=== PATIENT | female | born 1960 | race American Indian/Alaskan Native ===

== ENCOUNTER 2017-08-17 22:30 | Emergency (ER) | payer MEDICAID ==
[2017-08-17] MEDS ORDERED: PHENERGAN PO ONE (23:15)
[2017-08-17] MEDS ORDERED: NACL 0.9% 1000 ML 1,000 ML IV ONE (23:17)
[2017-08-17] MEDS ORDERED: DILAUDID IV ONE (23:17)
--- NOTE | 2017-08-17 23:31 | Emergency Department Report ---
ED Abdominal Pain HPI - General Chief Complaint: Abdominal Pain Stated Complaint: N/V BLOOD IN URINE Time Seen by Provider: 08/17/17 23:14 Source: patient Mode of arrival: Stretcher Limitations: No Limitations - History of Present Illness Initial Comments: Ms Burns is a 56 year-old woman with hx of stage 4 pancreatic cancer on home hospice who presents with nausea, abdominal pain, hematuria. is accompanied by her home hospice nurse. Has not been taking her meds at home. She is DNR/DNI. No fever. Decreased PO due to nausea. Was just hospitalized at [facility] this week and discharged to home hospice. Has been taking oxycodone, but not her other meds. has methadone, morphine, phenergan, haldol, ativan which she has not been taking. Hx of HTN, HIV on meds (CD4 470, viral load undetectable), HepC and DM. Some pain with urination as well. MD Complaint: abdominal pain - Related Data Allergies Allergy/AdvReac Type Severity Reaction Status Date / Time No Known Allergies Allergy Unverified 05/19/14 19:44 ED Review of Systems ROS: Stated complaint: N/V BLOOD IN URINE Other details as noted in HPI Comment: All other systems reviewed and negative ED Past Medical Hx - Past Medical History Previous Medical History?: Yes Hx Hypertension: Yes Hx Diabetes: Yes Hx HIV: Yes Additional medical history: Hep C, pancreatic CA, jaundice - Surgical History Past Surgical History?: Yes Additional Surgical History: laparscopy, right chest port and removed - Social History Smoking Status: Former Smoker Substance Use Type: None ED Physical Exam - General Limitations: No Limitations General appearance: alert, in no apparent distress, cachectic - Head Head exam: Present: atraumatic, normocephalic - Eye Eye exam: Present: normal appearance, PERRL, EOMI - ENT ENT exam: Present: normal exam, mucous membranes dry - Neck Neck exam: Present: normal inspection, full ROM. Absent: tenderness, lymphadenopathy - Respiratory Respiratory exam: Present: normal lung sounds bilaterally. Absent: respiratory distress, wheezes, rales - Cardiovascular Cardiovascular Exam: Present: regular rate, normal rhythm. Absent: systolic murmur, diastolic murmur, rubs, gallop - GI/Abdominal GI/Abdominal exam: Present: soft, tenderness. Absent: distended, guarding, rebound - Extremities Exam Extremities exam: Present: normal inspection - Back Exam Back exam: Present: normal inspection - Neurological Exam Neurological exam: Present: alert, oriented X3 - Psychiatric Psychiatric exam: Present: normal affect, normal mood - Skin Skin exam: Present: warm, dry, intact, normal color. Absent: rash ED Course Vital Signs 08/17/17 08/17/17 08/18/17 22:37 22:52 00:56 Temperature 98.8 F Pulse Rate 114 H 105 H Respiratory 16 16 16 Rate Blood Pressure 145/79 Blood Pressure 154/81 [Left] O2 Sat by Pulse 100 99 Oximetry 08/18/17 01:23 Temperature Pulse Rate Respiratory 16 Rate Blood Pressure Blood Pressure [Left] O2 Sat by Pulse Oximetry ED Medical Decision Making - Lab Data Result diagrams: 08/17/17 22:50 08/17/17 22:50 Lab Results 08/17/17 08/17/17 08/18/17 Range/Units 22:50 22:50 00:57 WBC 8.3 (4.5-11.0) K/mm3 RBC 3.88 (3.65-5.03) M/mm3 Hgb 12.0 (10.1-14.3) gm/dl Hct 34.5 (30.3-42.9) % MCV 89 (79-97) fl MCH 31 (28-32) pg MCHC 35 H (30-34) % RDW 17.8 H (13.2-15.2) % Plt Count 150 (140-440) K/mm3 Lymph % (Auto) 10.4 L (13.4-35.0) % Maries % (Auto) 6.7 (0.0-7.3) % Eos % (Auto) 0.0 (0.0-4.3) % Baso % (Auto) 0.2 (0.0-1.8) % Lymph # 0.9 L (1.2-5.4) K/mm3 Maries # 0.6 (0.0-0.8) K/mm3 Eos # 0.0 (0.0-0.4) K/mm3 Baso # 0.0 (0.0-0.1) K/mm3 Seg Neutrophils % 82.7 H (40.0-70.0) % Seg Neutrophils # 6.9 (1.8-7.7) K/mm3 Sodium 125 L (137-145) mmol/L Potassium 4.0 (3.6-5.0) mmol/L Chloride 89.9 L (98-107) mmol/L Carbon Dioxide 21 L (22-30) mmol/L Anion Gap 18 mmol/L BUN 6 L (7-17) mg/dL Creatinine < 0.2 L (0.7-1.2) mg/dL Estimated GFR > 60 ml/min BUN/Creatinine Ratio 30 % Glucose 216 H (65-100) mg/dL Calcium 8.7 (8.4-10.2) mg/dL Total Bilirubin 24.80 H (0.1-1.2) mg/dL AST 180 H (5-40) units/L ALT 73 H (7-56) units/L Alkaline Phosphatase 196 H (35-129) units/L Total Protein 8.0 (6.3-8.2) g/dL Albumin 2.9 L (3.9-5) g/dL Albumin/Globulin Ratio 0.6 % Lipase 18 (13-60) units/L Urine Color Antonia (Yellow) Urine Turbidity Clear (Clear) Urine pH 6.0 (5.0-7.0) Ur Specific Moriah 1.002 L (1.003-1.030) Urine Protein <15 mg/dl (Negative) mg/dL Urine Glucose (UA) 50 (Negative) mg/dL Urine Ketones Neg (Negative) mg/dL Urine Blood Sm (Negative) Urine Nitrite Neg (Negative) Urine Bilirubin Neg (Negative) Urine Urobilinogen < 2.0 (<2.0) mg/dL Ur Leukocyte Esterase Neg (Negative) Urine WBC (Auto) 3.0 (0.0-6.0) /HPF Urine RBC (Auto) 1.0 (0.0-6.0) /HPF U Epithel Cells (Auto) < 1.0 (0-13.0) /HPF Urine Mucus Few /HPF - Medical Decision Making ms Burns is a 56 year-old woman with stage 4 pancreatic cancer who presents with nausea/vomiting. She is on hospice. Home hospice worker comes in too. She has not been taking home meds. Does not know what is available. patient is DNR/ DNI. Exam with tachycardia, jaundice. Labs as expected. No UTI. Given dilaudid and phenergan with adequate symptom control. Home hospice is coming to her house first thing in the morning to discuss her medication regimen. Safe for dc to home with close hospice follow-up. Goal of care is comfort only. Critical care attestation.: If time is entered above; I have spent that time in minutes in the direct care of this critically ill patient, excluding procedure time. ED Disposition Clinical Impression: Nausea and vomiting Qualifiers: Vomiting type: unspecified Vomiting Intractability: non-intractable Qualified Code(s): R11.2 - Nausea with vomiting, unspecified Disposition: DC-01 TO HOME OR SELFCARE Is pt being admited?: No Condition: Stable Instructions: Acute Nausea and Vomiting (ED) Referrals: PRIMARY CARE, [Primary Care Provider] - 3-5 Days
[2017-08-17 23:55] LABS: Alanine Aminotransferase 73 units/L (7-56); Albumin 2.9 g/dL (3.9-5); BUN/Creatinine Ratio 30; Blood Urea Nitrogen 6 mg/dL (7-17); Calcium 8.7 mg/dL (8.4-10.2); Hemolysis Index 78; Lipase 18 units/L (13-60)
[2017-08-18 00:23] LABS: Basophils % (Auto) 0.2 % (0.0-1.8); Hematocrit 34.5 % (30.3-42.9); Lymphocytes # (Auto) 0.9 K/mm3 (1.2-5.4); Lymphocytes % (Auto) 10.4 % (13.4-35.0); Mean Corpuscular HGB Conc 35 % (30-34); Mean Corpuscular Hemoglobin 31 pg (28-32); Mean Corpuscular Volume 89 fl (79-97); Monocytes # (Auto) 0.6 K/mm3 (0.0-0.8); Monocytes % (Auto) 6.7 % (0.0-7.3); Platelet Count 150 K/mm3 (140-440); Red Blood Count 3.88 M/mm3 (3.65-5.03); Red Cell Distribution Width 17.8 % (13.2-15.2)
[2017-08-18 01:12] LABS: Bilirubin,Urine NEG (Negative); Blood,Urine SM (Negative); Color,Urine Amber (Yellow); Mucus,Urine FEW /HPF; Protein,Urine <15 mg/dL mg/dL (Negative); Urobilinogen,Urine < 2.0 mg/dL (<2.0)
[2017-08-18] MEDS ORDERED: BENADRYL ONE (01:18)
[2017-08-18] MEDS ORDERED: BENADRYL IV ONE (01:19)
[2017-08-18 02:51] VITALS: BP 134/77
== END 2017-08-18 03:10 | disposition home or self-care (01) ==
LOC: ED 22:30
DX: R11.2 Nausea with vomiting, unspecified (principal); R10.9 Unspecified abdominal pain; R31.9 Hematuria, unspecified; I10 Essential (primary) hypertension; E11.9 Type 2 diabetes mellitus without complications; Z87.891 Personal history of nicotine dependence; Z86.19 Personal history of other infectious and parasitic diseases
CPT/HCPCS: 36415; 80053; 81001; 83690; 85025; 96361; 96374; 96375; 99284; J1170; J1200; J7030; Q0169

== ENCOUNTER 2017-08-20 09:22 | Emergency (ER) | payer MEDICAID ==
[2017-08-20] MEDS ORDERED: ZOFRAN IV ONE (10:46)
[2017-08-20] MEDS ORDERED: MORPHINE IV ONE (10:46)
[2017-08-20] MEDS ORDERED: NACL 0.9% 1000 ML 1,000 ML IV ONE (10:47)
--- NOTE | 2017-08-20 10:52 | Emergency Department Report ---
ED Abdominal Pain HPI - General Chief Complaint: Abdominal Pain Stated Complaint: ABD/NAUSEA VOMITING Time Seen by Provider: 08/20/17 10:11 Source: patient, EMS Mode of arrival: Stretcher Limitations: No Limitations - History of Present Illness Initial Comments: Ms. Burns presents with abdominal pain. She is spitting up a black liquid. Moderately severe pain. She is taking methadone and MS Contin which she says is too strong for her. She also has zofran for home. I was able to obtain information from the previous ED [place] from visit 3 days ago August 17. According to my colleague's documentation, patient is on home hospice care. Recently dc'd from [facility]. She has hx of stage 4 pancreatic cancer. According to patient, the doctor told her that nothing could be done for the cancer. MD Complaint: abdominal pain -: Gradual, days(s) (sevearl days) Location: epigastric Radiation: LUQ, RUQ Severity: moderate Severity scale (0 -10): 0 Quality: cramping, sharp - Related Data Allergies Allergy/AdvReac Type Severity Reaction Status Date / Time No Known Allergies Allergy Verified 08/20/17 10:21 ED Review of Systems ROS: Stated complaint: ABD/NAUSEA VOMITING Other details as noted in HPI Comment: All other systems reviewed and negative Constitutional: malaise. denies: fever Respiratory: denies: cough Cardiovascular: denies: chest pain ED Past Medical Hx - Past Medical History Previous Medical History?: Yes Hx Hypertension: Yes Hx Diabetes: Yes Hx of Cancer: Yes Hx HIV: Yes Additional medical history: Hep C, pancreatic CA, jaundice - Surgical History Past Surgical History?: Yes Additional Surgical History: laparscopy, right chest port and removed - Social History Smoking Status: Never Smoker Substance Use Type: None ED Physical Exam - General Limitations: No Limitations General appearance: alert, in no apparent distress - Head Head exam: Present: atraumatic, normocephalic - Eye Eye exam: Present: normal appearance, scleral icterus - ENT ENT exam: Present: mucous membranes moist - Neck Neck exam: Present: normal inspection - Respiratory Respiratory exam: Present: normal lung sounds bilaterally. Absent: respiratory distress, wheezes, rales, rhonchi - Cardiovascular Cardiovascular Exam: Present: regular rate, normal rhythm. Absent: systolic murmur, diastolic murmur, rubs, gallop - GI/Abdominal GI/Abdominal exam: Present: soft, distended, normal bowel sounds. Absent: tenderness, guarding, rebound - Extremities Exam Extremities exam: Present: normal inspection - Back Exam Back exam: Present: normal inspection - Neurological Exam Neurological exam: Present: alert, oriented X3 - Psychiatric Psychiatric exam: Present: normal affect, normal mood - Skin Skin exam: Present: warm, dry, intact, normal color. Absent: rash ED Course Vital Signs 08/20/17 08/20/17 08/20/17 09:53 10:00 10:59 Temperature 99.8 F H Pulse Rate 116 H 109 H Respiratory 14 9 L Rate Blood Pressure 145/75 163/84 Blood Pressure 145/75 [Left] O2 Sat by Pulse 100 100 100 Oximetry 08/20/17 08/20/17 08/20/17 11:00 11:15 11:27 Temperature Pulse Rate Respiratory 16 Rate Blood Pressure 156/82 156/82 Blood Pressure [Left] O2 Sat by Pulse 100 100 Oximetry 08/20/17 08/20/17 08/20/17 11:30 11:45 11:57 Temperature Pulse Rate Respiratory 15 Rate Blood Pressure 145/81 145/81 Blood Pressure [Left] O2 Sat by Pulse 100 Oximetry 08/20/17 12:00 Temperature Pulse Rate Respiratory Rate Blood Pressure 136/81 Blood Pressure [Left] O2 Sat by Pulse Oximetry ED Medical Decision Making - Medical Decision Making Unfortunately, Ms. Arturo Victor has the diagnosis of stage 4 pancreatic cancer. According to previous documentaion, she is DNR/DNI. Tachycardia was present during previous ED encounter. Goal of care is comfort only. She received IV fluid in the ED and analgesia. No active vomiting in the ED. She will contact her hospice nurse for pain control instructions. I strongly encouraged her to take the medications methadone and MS Alex. She is concerned that the medications are too strong. I encouraged her to take half doses of the medications more often for better pain control. Critical care attestation.: If time is entered above; I have spent that time in minutes in the direct care of this critically ill patient, excluding procedure time. ED Disposition Clinical Impression: Pancreatic cancer, Need for comfort care Disposition: -01 TO HOME OR SELFCARE Is pt being admited?: No Does the pt Need Aspirin: No Condition: Stable Instructions: Pharmacological Management of Cancer Pain (ED) Additional Instructions: Please call your hospice nurse today. Time of Disposition: 13:12
[2017-08-20 13:40] VITALS: BP 147/78
== END 2017-08-20 13:40 | disposition home or self-care (01) ==
LOC: ED 09:22
DX: C25.9 Malignant neoplasm of pancreas, unspecified (principal); R11.10 Vomiting, unspecified; I10 Essential (primary) hypertension; E11.9 Type 2 diabetes mellitus without complications
CPT/HCPCS: 96361; 96374; 96375; 99284; J2270; J2405; J7030